=== PATIENT | male | born 1965 | race Caucasian/White ===

== ENCOUNTER → 2020-02-18 | Outpatient (CLI) | payer MEDICARE, OTHER ==
[2020-02-18 08:50] VITALS: BP 115/76; PULSE 95; RESP 16; TEMP 98.5
--- NOTE | 2020-02-19 18:36 | P.PAINCN ---
History of Present Illness - Reason for Consult Consult date: 02/18/20 - History of Present Illness This 54 years old male with a chronic history of severe left groin pain and testicular pain started 3 years ago, the pain is constant shooting pain that radiated from the groin towards the left testicle, associated with burning numbness sensation interfere with the quality of life, patient denies any penis discharge he denies any fever no erythema, patient reported that he had a left hernia surgery done 5 years ago, his symptoms started 2 years after the surgery, it is not related to the intercourse, the pain is constant, he was evaluated by urologist regarding this testicular pain , and neurologist Dr. bullock referred him to us for possible nerve block, also patient complaining of severe low back pain , he had multiple surgical interventions on his back and he reported that his low back pain radiated to the posterior aspect of his lower extremity, he denies any motor or sensory deficit in his lower extremity, patient currently uses oxycodone 30 mg every 6 hours, which is prescribed by his primary care , he denies any side effect of the medication. Past Medical History Past Medical History: Coronary Artery Disease (CAD), Chest Pain / Angina, GERD/Reflux, Hyperlipidemia, Hypertension, Prostate Disorder Additional Past Medical History / Comment(s): DDD, CHRONIC BACK AND NECK PAIN, DOWN ABDIAS LEGS, recent episode of passing out from bp dropping when standing up. gout, spinal stenosis, hx kidney stones History of Any Multi-Drug Resistant Organisms: None Reported Past Surgical History: Appendectomy, Back Surgery, Cholecystectomy, Heart Catheterization With Stent, Hernia Repair Additional Past Surgical History / Comment(s): CERVICAL SURGERY X2; RT TESTICLE REMOVED, R/T INJURY TEENAGER; RT ING HERNIA REPAIR; HIATAL HERNIA REPAIR; two cardiac stents Past Anesthesia/Blood Transfusion Reactions: No Reported Reaction Date of Last Stent Placement:: Nov 2019 Smoking Status: Current every day smoker - Past Family History Sister(s) Family Medical History: Cancer Additional Family Medical History / Comment(s): SISTER #1 THYROID. SISTER #2 LYMPHOMA Medications and Allergies Home Medications Medication Instructions Recorded Confirmed Type oxyCODONE HCL [oxyCODONE HCL (IR)] 30 mg PO QID PRN 02/09/15 02/17/20 History Aspirin [Adult Low Dose Aspirin EC] 81 mg PO DAILY 02/17/20 02/17/20 History Atorvastatin [Lipitor] 40 mg PO HS 02/17/20 02/17/20 History Docusate [Colace] 100 mg PO Q48H 02/17/20 02/17/20 History Finasteride [Proscar] 5 mg PO DAILY 02/17/20 02/17/20 History Isosorbide Mononitrate ER [Imdur] 30 mg PO DAILY 02/17/20 02/17/20 History Methocarbamol [Robaxin-750] 750 mg PO TID PRN 02/17/20 02/17/20 History Pantoprazole Sodium [Protonix] 40 mg PO DAILY 02/17/20 02/17/20 History Tamsulosin HCl [Flomax] 0.4 mg PO AC-SUPPER 02/17/20 02/17/20 History Ticagrelor [Brilinta] 90 mg PO BID 02/17/20 02/17/20 History amLODIPine BESYLATE 5 mg PO DAILY 02/17/20 02/17/20 History Allergies Allergy/AdvReac Type Severity Reaction Status Date / Time loratadine [From Claritin] Allergy "crawling Verified 02/17/20 14:28 skin" antidepressant(unknown name) Allergy Unknown Uncoded 02/17/20 14:28 Physical Exam Vitals: Vital Signs Temp Pulse Resp BP Pulse Ox 02/18/20 08:46 98.5 F 95 16 115/76 96 Physical Examinations : -Constitutiona : Cooperative , not in acute distress . -HEENT : nech : supple , no Lymphadenopathy , normal thyroid size . : eyes : no ptosis , no icterus, no ph otophobia . - neurologic : Cranial nerve II to XII intact , no focal neurological deffecit . -psychatric : alert , oriented X 3 , appropriate affect , intact judgment and insight . -Lymphatic : no Lymphadenopathy . -Abdome : Soft nontender , no organomegaly BS + -Genitourinary : Left testicular area and left groin area allodynia and hypersensitivity to touch There is no penis discharged, there is no erythema in the groin area, no swelling in the groin area - musculoskeltal : Lumber spine moter stegnth lower extremities ,thigh and legs 5/5 Right side , 5/5 Left side deep tendon reflexes : normal Knee Jerk , normal ankle Jerk lumber facet Loading Test =positive Right , positive Left Range of motion of the lumbar spine Flexion 30 degrees, extension 10 degrees strait leg raising test = positive at 30 degree Fabere test= positive Right , and positive LT . tenderness over the Sacroiliac joint on the Right , and Left sides Results Comments: Abdominal ultrasound revealed Assessment and Plan Plan: Assessment and plan=1-Left groin pain secondary to left ilioinguinal nerve and iliohypogastric neuralgia Patient could benefit from left ilioinguinal and iliohypogastric nerve block under ultrasound guided. 2-low back pain secondary to failed back surgery syndrome lumbar area, and patient had the clinical finding of lumbar spondylosis with lumbar facet arthropathy, after we finished the treatment for the testicular pain we can focus our treatment on low back pain by doing diagnostic medial branch block, and possible RFA in the future would have to order a computed tomography scan of the lumbar spine to evaluate the etiology Time with Patient: Greater than 30 PQRS Measure Charge Sheet Measure #130: Documentation of Current Meds in Medical Chart: Patient's medications documented in chart Measure #226: Tobacco Use: Screen & Cessation Intervention: Pt screened for tobacco use AND intervention given Measure #111: Pneumonia Vaccination: Pneumococcal vaccine NOT administered or previously given Measure #47: Advance Care Plan: Advance care planning discussed & documented, pt chose/unable to give Measure #412: Opioid Treatment Agreement: No documentation of signed opioid treatment agreement Measure #408: Opioid Therapy Follow-up Evaluation: Patient had NO f/u eval minimum every 3 months during opioid therapy Measure #317: Preventitive Care & Scrn High Bld Press & F/U: Normal blood pressure, f/u not required Measure #128: Body Mass Index (BMI) Screening & Follow-up: BMI documented BELOW normal parameters - f/u documented Measure #131: Pain Assessment & Follow-up: Pain positive & plan documented, Follow-up scheduled Measure #431: Unhealthy Alcohol Use Preventative Care & Scrn: Patient not identified as an unhealthy alcohol user PQRS Narrative: Smoking Status Heavy tobacco smoker Blood Pressure 115/76 Pain Intensity [Groin] 4 Scale Used Numeric (1 - 10) Hx Alcohol Use (MH) No Home Medications: Ambulatory Orders oxyCODONE HCL [oxyCODONE HCL (IR)] 30 mg PO QID PRN 02/09/15 Aspirin [Adult Low Dose Aspirin EC] 81 mg PO DAILY 02/17/20 Atorvastatin [Lipitor] 40 mg PO HS 02/17/20 Docusate [Colace] 100 mg PO Q48H 02/17/20 Finasteride [Proscar] 5 mg PO DAILY 02/17/20 Isosorbide Mononitrate ER [Imdur] 30 mg PO DAILY 02/17/20 Methocarbamol [Robaxin-750] 750 mg PO TID PRN 02/17/20 Pantoprazole Sodium [Protonix] 40 mg PO DAILY 02/17/20 Tamsulosin HCl [Flomax] 0.4 mg PO AC-SUPPER 02/17/20 Ticagrelor [Brilinta] 90 mg PO BID 02/17/20 amLODIPine BESYLATE 5 mg PO DAILY 02/17/20
== END | disposition home or self-care (01) ==
LOC: PNWHC3 08:35
PROVIDERS: ATTEND Specialist
DX: M47.816 Spondylosis without myelopathy or radiculopathy, lumbar region (principal); M96.1 Postlaminectomy syndrome, not elsewhere classified; R10.32 Left lower quadrant pain; G58.8 Other specified mononeuropathies; I25.10 Atherosclerotic heart disease of native coronary artery without angina pectoris; E78.5 Hyperlipidemia, unspecified; I10 Essential (primary) hypertension; F17.200 Nicotine dependence, unspecified, uncomplicated; Z79.891 Long term (current) use of opiate analgesic; Z79.82 Long term (current) use of aspirin; Z79.899 Other long term (current) drug therapy
CPT/HCPCS: 99211

== ENCOUNTER 2020-03-12 06:36 | Day surgery (SDC) | payer MEDICARE, OTHER ==
[2020-03-08 13:21] VITALS: BMI 18.3
[2020-03-12 07:26] VITALS: TEMP 97.2
[2020-03-12] MEDS: LACTATED RINGERS 1,000 ML IV SCH ×2 (07:41→07:54)
[2020-03-12] MEDS ORDERED: ONDANSETRON 4 MG/2 ML VIAL ONE (07:53)
[2020-03-12] MEDS ORDERED: ONDANSETRON 4 MG/2 ML VIAL IVP ONE (07:54)
[2020-03-12] MEDS ORDERED: ROPIVACAINE 5MG/ML 20ML VIAL ONE (07:59)
[2020-03-12] MEDS ORDERED: MIDAZOLAM 2 MG/2 ML VIAL ONE (07:59)
[2020-03-12] MEDS ORDERED: fentaNYL (PF) 50 MCG/ML 2 ML AMP ONE (07:59)
[2020-03-12] MEDS ORDERED: methylPREDNISolone ACETATE 40 MG/ML 1 ML VIAL ONE (07:59)
--- NOTE | 2020-03-12 08:23 | P.PCN ---
Date of Procedure: 03/12/20 Procedure(s) Performed: Preoperative diagnoses= 1- left ilioinguinal neuralgia., 2- Left iliohypogast reginaldo neuralgia Postoperative diagnoses= same as preoperative diagnosis. Procedure=1- left Ilioinguinal and left iliohypogastric nerve block with ultrasound guidance. (Ultrasound images available in the medical record ) Anesthesia= moderate sedation with Versed 2 mg and fentanyl 100 micrograms and local infiltrations with ropivacaine 0.5% 3 mL Estimated blood loss=minimal. Procedure indication= the patient had a history of severe chronic left Groin pain, diagnosed with left ilioinguinal and left hypogastric neuralgia , unresponsive to conservative treatment. and patient here to have ilioinguinal nerve block Procedure description= the patient was seen and identified in the preoperative holding area, risks and benefits and alternative of the procedure and possible complications discussed with the patient, and he agreed with the preceding, patient signed the consent, an IV was started, and vital signs were monitored and were stable throughout the procedure, patient was placed in the supine position on the stretcher and the groin and lower abdomen area was prepped, and draped with a sterile fashion, vital signs were closely monitored during the procedure, the linear ultrasound probe was placed in the medial and superior aspect of the on the iliac Crest, ,the Transvurs abdominus muscle,and the internal obique muscules identified, and the locations of the left ilio inguinal , left iliohypogastric nerve identified , local infiltration of the skin and subcutaneous tissue with ropivacaine 0.5% 3 mL then a 20 -gauge 3 inche PUJUNK ultrasound needle advanced slowly with continous visualizations of the needle tip , and needle was in close proxemity of the left ilioinguinal nerve left iliohypogastric, and after appropriate needle placement confirmed withe ultrasound ,the negative aspiration for heme , and there was no paresthesia during the injection, 13 ml of Ropivacaine 0.5%, and 40 mg of Depo- Medrol , injected after negative aspiration, the needle removed, Then the skin was cleaned and a Band-Aid applied, the patient transported to recovery room in stable condition and he was monitored for 30 minutes before he was discharged home and then patient was reexamined before going home and patient was discharged in stable condition and patient will follow up with the pain clinic in a few weeks
[2020-03-12] MEDS ORDERED: IV FLUID CONTINUATION 700 ML IV ONE (08:26)
[2020-03-12] MEDS ORDERED: LACTATED RINGERS 700 ML IV ONE (08:26)
[2020-03-12 08:27] VITALS: RESP 16
[2020-03-12 08:53] VITALS: BP 137/71; PULSE 63
== END 2020-03-12 09:02 | disposition home or self-care (01) ==
LOC: ORPAIN 06:36
PROVIDERS: ATTEND Specialist
DX: G89.29 Other chronic pain (principal); G58.8 Other specified mononeuropathies; N50.812 Left testicular pain; M96.1 Postlaminectomy syndrome, not elsewhere classified; M54.2 Cervicalgia; M48.00 Spinal stenosis, site unspecified; I25.10 Atherosclerotic heart disease of native coronary artery without angina pectoris; K21.9 Gastro-esophageal reflux disease without esophagitis; E78.5 Hyperlipidemia, unspecified; I10 Essential (primary) hypertension; N42.9 Disorder of prostate, unspecified; M10.9 Gout, unspecified; Z87.442 Personal history of urinary calculi; Z90.49 Acquired absence of other specified parts of digestive tract; Z95.5 Presence of coronary angioplasty implant and graft; Z98.890 Other specified postprocedural states; Z90.89 Acquired absence of other organs; Z90.79 Acquired absence of other genital organ(s); F17.200 Nicotine dependence, unspecified, uncomplicated; Z80.7 Family history of other malignant neoplasms of lymphoid, hematopoietic and related tissues; Z80.8 Family history of malignant neoplasm of other organs or systems; Z79.02 Long term (current) use of antithrombotics/antiplatelets; Z79.82 Long term (current) use of aspirin; Z79.899 Other long term (current) drug therapy; Z88.8 Allergy status to other drugs, medicaments and biological substances
CPT/HCPCS: 64425; 76942; J2250; J1030; J2405; J3010; J2795; 99152

== ENCOUNTER 2020-04-06 07:41 | Day surgery (SDC) | payer MEDICARE, OTHER ==
[2020-04-02 15:46] VITALS: BMI 18.3
[~2020-04-06 07:41] MED LIST: LACTATED RINGERS 1,000 ML IV SCH
[2020-04-06 08:24] VITALS: RESP 16; TEMP 97.8
[2020-04-06] MEDS ORDERED: LIDOCAINE 1% (10MG/ML) FOR IV START INTRADERMA ONE (08:37)
[2020-04-06] MEDS ORDERED: ROPIVACAINE 5MG/ML 20ML VIAL ONE (08:43)
[2020-04-06] MEDS ORDERED: MIDAZOLAM 2 MG/2 ML VIAL ONE (08:43)
[2020-04-06] MEDS ORDERED: methylPREDNISolone ACETATE 40 MG/ML 1 ML VIAL ONE (08:43)
[2020-04-06] MEDS ORDERED: fentaNYL (PF) 50 MCG/ML 2 ML AMP ONE (08:43)
--- NOTE | 2020-04-06 09:04 | P.PCN ---
Date of Procedure: 04/06/20 Procedure(s) Performed: Preoperative diagnoses= 1- left ilioinguinal neuralgia., 2- Left iliohypogastric neuralgia Postoperative diagnoses= same as preoperative diagnosis. Procedure=1- left Ilioinguinal and left iliohypogastric nerve block with ultrasound guidance. (Ultrasound images available in the medical record ) Anesthesia= moderate sedation with Versed 2 mg and fentanyl 100 micrograms and local infiltrations with ropivacaine 0.5% 3 mL Estimated blood loss=minimal. Procedure indication= the patient had a history of severe chronic left Groin pain, diagnosed with left ilioinguinal and left hypogastric neuralgia , unresponsive to conservative treatment. and patient here to have ilioinguinal nerve block Procedure description= the patient was seen and identified in the preoperative holding area, risks and benefits and alternative of the procedure and possible complications discussed with the patient, and he agreed with the preceding, patient signed the consent, an IV was started, and vital signs were monitored and were stable throughout the procedure, patient was placed in the supine position on the stretcher and the groin and lower abdomen area was prepped, and draped with a sterile fashion, vital signs were closely monitored during the procedure, the linear ultrasound probe was placed in the medial and superior aspect of the on the iliac Crest, ,the Transvurs abdominus muscle,and the internal obique muscules identified, and the locations of the left ilioinguinal , left iliohypogastric nerve identified , local infiltration of the skin and subcutaneous tissue with ropivacaine 0.5% 3 mL then a 20 -gauge 3 inche PUJUNK ultrasound needle advanced slowly with continous visualizations of the needle tip , and needle was in close proxemity of the left ilioinguinal nerve left iliohypogastric, and after appropriate needle placement confirmed withe ultrasound ,the negative aspiration for heme , and there was no paresthesia during the injection, 13 ml of Ropivacaine 0.5%, and 40 mg of Depo- Medrol , injected after negative aspiration, the needle removed, Then the skin was cleaned and a Band-Aid applied, the patient transported to recovery room in stable condition and he was monitored for 30 minutes before he was discharged home and then patient was reexamined before going home and patient was discharged in stable condition and patient will follow up with the pain clinic in a few weeks
[2020-04-06] MEDS ORDERED: IV FLUID CONTINUATION 725 ML IV ONE (09:10)
[2020-04-06 09:42] VITALS: BP 124/77; PULSE 60
== END 2020-04-06 09:43 | disposition home or self-care (01) ==
LOC: ORPAIN 07:41
PROVIDERS: ATTEND Specialist
DX: G89.29 Other chronic pain (principal); G58.8 Other specified mononeuropathies; Z88.8 Allergy status to other drugs, medicaments and biological substances
CPT/HCPCS: 64425; J2250; J1030; J3010; J2795; 99152; 99153

== ENCOUNTER → 2020-05-17 | Outpatient (CLI) | payer MEDICARE, OTHER ==
[2020-05-17 13:43] VITALS: BP 119/81; PULSE 71; RESP 16
--- NOTE | 2020-05-17 14:05 | P.PN ---
Subjective Progress Note Date: 05/17/20 This is a 54-year-old gentleman with history of lower back pain with radiation to the left lower extremity down to the left foot with numbness and tingling in the left foot and also left groin and testicular pain status post left inguinal hernia repair. The patient had left ilioinguinal nerve block which gave him 60% of pain relief in the groin and left testicle however he complains of severe back pain with radiation to the left lower extremity down to the foot as mentioned above. The patient takes Brilinta for a history of coronary stent placement. Patient denies new-onset weakness, bowel/bladder incontinence, or any other signs or symptoms of cauda equina syndrome. There are no signs of acute intoxication, and no indications of medication diversion or overuse. In addition to above, 13-point review of systems is also negative for chest pain, shortness of breath, changes in vision, changes in hearing, new onset weakness, abdominal pain, diarrhea, extreme fatigue, malaise, fever, skin changes, homicidal or suicidal ideation, or bowel or bladder incontinence. Vital Signs: Reviewed in EMR Gen: AAOx3, NAD HEENT: PERRLA,hearing grossly normal Pulm: resp unlabored Neck: supple, trachea midline Neuro exam of the lower extremities: Hyperactive deep tendon reflexes bilaterally and normal muscle strength bilaterally Straight leg raising test: Charles's test: Range of motion of the lumbar spine: Facet loading test: Tenderness in the paravertebral musculature: Positive on the lumbar paravertebral musculature bilaterally Positive tenderness around the hernia repair in the left groin. Neuro: CN II-XII grossly intact, Imaging: Reviewed in EMR/chart Assessment: Left ilioinguinal inguinal neuralgia status post left inguinal hernia repair Lower back and left leg pain status post lumbar laminectomy Treatment with anticoagulants due to coronary artery disease and stent placement Plan: 1. Explanation: Opioid and psychological risk scores were reviewed. Diagnoses, prognoses, and multiple treatment options including but not limited to physical therapy, interventional therapies, adjuvant medical therapies, narcotic medication therapies, and surgery were discussed with the patient and all questions were answered to the patient's satisfaction. 2. Opioid agreement: Signed with the patient and the patient is warned not to use opioids while driving or before driving and not to combine opioids with benzodiazepines or alcohol. 3. Counseling: The patient was counseled extensively on SMOKING CESSATION, BODY MASS INDEX, EXERCISE. Specifically, the patient was instructed regarding the importance of smoking cessation, obesity, and exercise in the context of both chronic pain and overall health. 4. Procedures: Schedule for caudal epidural steroid injection under fluoroscopic guidance. The patient will have to stop his Brilinta for 5 days before the procedure. 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 5. Consultations: None 6. Investigations: None 7. Medications: None. The patient uses Percocet from his family physician 8. Disposition: Return to the above-mentioned procedure as soon as possible 9. Maps were reviewed and were appropriate. Objective - Vital Signs Vital signs: Vital Signs Temp Pulse 71 05/17/20 13:40 Resp 16 05/17/20 13:40 BP 119/81 05/17/20 13:40 Pulse Ox 95 05/17/20 13:40
== END ==
LOC: PNWHC3 13:29
PROVIDERS: ATTEND Anesthesiology
DX: G89.18 Other acute postprocedural pain (principal); G58.8 Other specified mononeuropathies; M79.605 Pain in left leg; M54.5 Low back pain; F17.200 Nicotine dependence, unspecified, uncomplicated; I25.10 Atherosclerotic heart disease of native coronary artery without angina pectoris; Z79.01 Long term (current) use of anticoagulants; Z98.890 Other specified postprocedural states; Z95.5 Presence of coronary angioplasty implant and graft
CPT/HCPCS: 99211

== ENCOUNTER 2020-06-29 08:26 | Day surgery (SDC) | payer MEDICARE, OTHER ==
[2020-06-25 12:27] VITALS: BMI 18.3
[2020-06-29 08:43] VITALS: RESP 16; TEMP 98.1
[2020-06-29] MEDS ORDERED: fentaNYL (PF) 50 MCG/ML 2 ML AMP ONE (08:47)
[2020-06-29] MEDS ORDERED: MIDAZOLAM 2 MG/2 ML VIAL ONE (08:47)
[2020-06-29] MEDS ORDERED: IOPAMIDOL M200 10 ML VIAL ONE (08:47)
[2020-06-29] MEDS ORDERED: methylPREDNISolone ACETATE 40 MG/ML 1 ML VIAL ONE (08:47)
--- NOTE | 2020-06-29 09:05 | P.PCN ---
Date of Procedure: 06/29/20 Procedure(s) Performed: PREOPERATIVE DIAGNOSIS:1- Lumbar post laminectomy syndrome. 2-lumbar spond ylosis with lumbar facet arthropathy POSTOPERATIVE DIAGNOSIS:1- Lumbar post laminectomy syndrome. 2-lumbar spondylosis with lumbar facet arthropathy PROCEDURE: 1. Caudal epidural steroid injection under fluoroscopic guidance. (Fluoroscopy images available in the radiology department ) 2. Caudal epidurogram ANESTHESIA: Local with 1% lidocaine; 5ml for subcutaneous infiltrations and IV versed 2 mg ,and fentanyl 100 mcg EBL: None. PROCEDURE INDICATION: The patient with neuropathic pain radiating distally returns for caudal epidural steroid injection. PROCEDURE DESCRIPTION: The patient was seen and identified in the preoperative area. Risks, benefits, complications, and alternatives were discussed with the patient. The patient agreed to proceed with the procedure and signed the consent. IV was started, and vital signs were stable. Patient was taken to the OR and time out was completed. The patient was placed in the prone position on procedure table and a pillow was placed under the abdomen to reduce lumbar lordosis. The lumbosacral area was prepped and draped in the usual sterile fashion. Critical pause was taken. Vital signs were closely monitored during the procedure. Using lateral fluoroscopy the anterior-posterior plates of the sacrum were identified and the skin and deeper tissues corresponding into sacrococcygeal ligament were anesthetized using approximately 3 mL of 1% lidocaine. Then under fluoroscopy, a 3-1/2-inch 20-gauge Tuohy epidural needle was guided through the sacrococcygeal ligament, and into the epidural space. After negative aspiration, a 2 mL of Isovue 200 contrast dye was injected with excellent epidurogram. Again after negative aspiration for CSF, blood, and with no paresthesias, then Depo-Medrol 60mg, 2ml of 1% preservative free Lidocaine with 6 ml of preservative free normal saline(total of 10ml)solution was injected with washout of epidurogram. Needle was withdrawn intact. Skin was cleansed, and bandage was applied. COMPLICATIONS: None DISPOSITION / PLANS: The patient was placed in a supine position and transferred to the recovery area in a stable condition for observation and was discharged from the recovery room after meeting discharge criteria. Home discharge instructions given to the patient by the staff. The patient was reexamined prior to discharge. The patient will schedule a follow up in the clinic in 2-4 weeks.
[2020-06-29] MEDS ORDERED: IV FLUID CONTINUATION 1,000 ML IV ONE (09:08)
[2020-06-29 09:13] VITALS: BP 118/77; PULSE 60
--- NOTE | 2020-06-29 09:17 | FL ---
Fluoroscopy INDICATION: Pain FINDINGS: Fluoroscopy time: 7 seconds. Images obtained: 2. IMPRESSIONS: 1. Documentation of fluoroscopy.
== END 2020-06-29 09:37 | disposition home or self-care (01) ==
LOC: ORPAIN 08:26
PROVIDERS: ATTEND Specialist
DX: M47.26 Other spondylosis with radiculopathy, lumbar region (principal); M96.1 Postlaminectomy syndrome, not elsewhere classified; Z79.02 Long term (current) use of antithrombotics/antiplatelets
CPT/HCPCS: 62323; J2250; J1030; J3010; Q9966; C1894; 99152

== ENCOUNTER → 2020-07-15 | Day surgery (SDC) | payer MEDICARE, OTHER ==
[2020-07-12 18:11] VITALS: BMI 18.3
[~2020-07-15] MED LIST changes: +IOPAMIDOL M200 10 ML VIAL ONE; +ROPIVACAINE 5MG/ML 20ML VIAL ONE; +TRIAMCINOLONE ACETONIDE 40 MG/ML 1 ML VIAL ONE
[2020-07-15 08:43] VITALS: TEMP 97.8
--- NOTE | 2020-07-15 09:37 | P.PCN ---
Date of Procedure: 07/15/20 Surgeon: Daniel Noonan Pathology: none sent Condition: stable Disposition: PACU Description of Procedure: PREOP DIAGNOSIS: Lumbar postlaminectomy syndrome. POSTOP DIAGNOSIS: Lumbar postlaminectomy syndrome. PROCEDURE: Caudal epidural steroid injection with epidurolysis and epidurogram under fluoroscopic guidance ANESTHESIA: Local only with 1% lidocaine EBL: Minimal. PROCEDURE INDICATION: The patient with post-laminectomy syndrome with low back pain and radiculopathy radiating down in both legs, here for a caudal epidural steroid injection with epidurolysis. PROCEDURE DESCRIPTION: The patient was seen in the preoperative holding area consent was obtained then he was brought into the procedure room and placed in prone position. Skin was prepped with ChloraPrep and draped in a sterile javier r. Lidocaine 1% was used to numb the skin up at the target point that was chosen as follows: The lateral view of fluoroscopy was used to identify the sacral hiatus and then after localizing the skin with lidocaine 1% I used 18- gauge epidural needle with a plastic sheath to go through the sacral hiatus and into the sacral canal and then injected 1 mL of Omnipaque for verification of needle tip position. After that the metal core of the needle was taken out and the plastic sheath was kept in the sacral canal. Then Racz catheter was introduced through the plastic sheath and into the epidural space at the sacral canal using the AP view of fluoroscopy up to L5-S1 level then I injected 2 MLS of Omnipaque which showed spread in the epidural space and after few back and forth movements of the Racz catheter I injected 40 mg of Kenalog +2 MLS of Ropivacaine 0.5% +7 MLS of preservative-free normal saline to a total volume of 10 MLS in the epidural space. Patient tolerated procedure well. A copy of the needle placement x-ray was saved to the C-arm machine. COMPLICATIONS: None. DISPOSITION / PLANS: The patient was placed in a supine position and transferred to the recovery area in a stable condition for observation and was discharged from the recovery room after meeting discharge criteria. Home discharge instructions given to the patient by the staff. The patient was reexamined prior to discharge. The patient will schedule a follow up in the clinic in 2-4 weeks.
--- NOTE | 2020-07-15 09:49 | FL ---
Fluoroscopy HISTORY: Pain 16 seconds fluoroscopy time supplied to the referring clinician. 2 intraoperative C-arm images docum ent the procedure. See dictated report from anesthesia.
[2020-07-15 10:00] VITALS: BP 132/82; PULSE 62; RESP 16
== END ==
LOC: ORPAIN 08:08
PROVIDERS: ATTEND Anesthesiology
DX: M96.1 Postlaminectomy syndrome, not elsewhere classified (principal); I25.10 Atherosclerotic heart disease of native coronary artery without angina pectoris
CPT/HCPCS: 62323; J3301; Q9966; J2795; C1894; 62264

== ENCOUNTER → 2020-10-28 | Outpatient (CLI) | payer MEDICARE ==
--- NOTE | 2020-10-28 14:07 | XR ---
EXAMINATION TYPE: XR chest 2V DATE OF EXAM: 10/28/2020 COMPARISON: Chest x-ray 12/26/2015 HISTORY: R05, cough TECHNIQUE: Frontal and lateral views of the chest are obtained. FINDINGS: There is no focal air space opacity, pleural effusion, or pneumothorax seen. The cardiac silhouette size is stable, small. There is bronchial wall thickening. Lung apices are not entirely in cluded on exam. Hyperinflation is consistent with underlying COPD. Generator has been placed in the l eft pectoral region and leads coursing via left subclavian approach into the right atrium and ventric le. The osseous structures are intact. Postop changes are noted in the abdomen. IMPRESSION: Correlate for bronchitis, reactive airways disease, limitations above.
== END | disposition home or self-care (01) ==
LOC: RADXRYALE 11:09
PROVIDERS: ATTEND Internal Medicine
DX: J98.09 Other diseases of bronchus, not elsewhere classified (principal); R91.8 Other nonspecific abnormal finding of lung field
CPT/HCPCS: 71046

== ENCOUNTER 2021-07-05 09:21 | Day surgery (SDC) | payer MEDICARE, OTHER ==
[2021-07-01 15:51] VITALS: BMI 18.8
[~2021-07-05 09:21] MED LIST changes: -IOPAMIDOL M200 10 ML VIAL ONE; -ROPIVACAINE 5MG/ML 20ML VIAL ONE; -TRIAMCINOLONE ACETONIDE 40 MG/ML 1 ML VIAL ONE
[2021-07-05 09:58] VITALS: TEMP 97.6
[2021-07-05] MEDS ORDERED: PROPOFOL 10 MG/ML 20 ML VIAL IV ONE (11:11)
--- NOTE | 2021-07-05 11:27 | P.PCN ---
Date of Procedure: 07/05/21 Procedure(s) Performed: BRIEF HISTORY: Patient is a 55-year-old pleasant white male scheduled for an elective colonoscopy as a part of screening for colon rectal neoplasia. PROCEDURE PERFORMED: Colonoscopy snare polypectomy. PREOPERATIVE DIAGNOSIS: Screening for colon cancer. IV sedation per Anesthesia. PROCEDURE: After informed consent was obtained, the patient, was brought into the endoscopy unit. IV sedation was administered by Anesthesia under continuous monitoring. Digital rectal examination was normal. Initially the Olympus CF-160 flexible video colonoscope was then inserted in the rectum, gradually advanced into the cecum without any difficulty. Careful examination was performed as the scope was gradually being withdrawn. Ileocecal valve and the appendiceal orifice were visualized and appeared normal. Prep was fair. Mucosa of the cecum, we normal. In the ascending colon just proximal to the ileocecal valve there was a 1 cm broad-based polyp removed by snare polypectomy. Rest of the ascending colon, transverse colon, descending colon, sigmoid colon, and rectum appeared normal. Retroflexion was performed in the rectum and no lesions were seen. The patient tolerated the procedure well. IMPRESSION: 1 cm broad-based ascending colon polyp status post polypectomy Rest of the colon appeared normal RECOMMENDATIONS: Findings of this examination were discussed with the patient as well as her family. He was advised to follow with the biopsy results. If the biopsy result adenoma he can have a repeat colonoscopy in 3 years
[2021-07-05 11:33] VITALS: RESP 16
[2021-07-05 11:46] VITALS: BP 149/89; PULSE 62
== END 2021-07-05 12:08 | disposition home or self-care (01) ==
LOC: ORWHC2ENDO 09:21
PROVIDERS: ATTEND Internal Medicine Gastroenterology
DX: Z12.11 Encounter for screening for malignant neoplasm of colon (principal); D12.2 Benign neoplasm of ascending colon
CPT/HCPCS: 45385; 88305; J2704